=== PATIENT | female | born 1975 | race Caucasian/White ===

== ENCOUNTER 2025-01-01 06:16 | Day surgery (SDC) | payer OTHER ==
[~2025-01-01] VITALS: Ht 154.9 cm; Wt 77.6 kg
[~2025-01-01 06:16] MED LIST: LACTATED RINGER'S 1,000 ML IV SCH; VENTOLIN HFA18 GM INH
[2025-01-01 06:42] VITALS: BP 128/82
[2025-01-01] MEDS ORDERED: LIDOCAINE HCL 1% 5 ML SDV INJ ONE (07:00)
[2025-01-01] MEDS ORDERED: IBLOOD GLUCOSE TEST STRIP 1 EA TEST VI PRN (07:00)
[2025-01-01] MEDS ORDERED: propofoL 200 MG/20 ML VIAL ONE ×2 (07:09→09:20)
[2025-01-01] MEDS ORDERED: LIDOCAINE HCL 2% 5 ML SDV ONE (07:09)
--- NOTE | 2025-01-01 08:01 | NUR ---
VISITED DURING SPIRITUAL CARE ROUNDS. PT SUPPORTED BY IN ROOM. BOTH IN OVERALL GOOD SPIRITS, NO IMMEDIATE NEEDS. TECHNICAL APPLICATIONS SPECIALIST PROVIDED SUPPORTIVE PRESENCE, HOSPITALITY, PRAYER. AND PT EXPRESSED GRATITUDE.
--- NOTE | 2025-01-01 10:02 | NUR ---
01/01/25 1002 Caroline Clinton 0957-PATIENT ARRIVED TO PACU ON 6L NC REACTIVE TO VERBAL STIMULI VERY DROWSY ABDOMEN SOFT. LAYING LEFT LATERAL. IVF INFUSING. SR HR 80'S. 1001-PATIENT AWAKE DROWSY DENIES PAIN OR NAUSEA. PASSING GAS. PLACED ON 2L NC RR EVEN 100% ORIENTED TO PACU
[2025-01-01 10:37] VITALS: BP 128/79
--- NOTE | 2025-01-03 11:19 | OR ---
[facility] [address] [place], [place] [address] Signed DATE OF OPERATION: 01/01/2025 SURGEON: Lisa Osborne MD PREOPERATIVE DIAGNOSES: Dysphagia to solids and dyspepsia POSTOPERATIVE DIAGNOSES: Mild distal esophageal stricture with no mass formation and mild gastritis in the prepyloric area. PROCEDURE: EGD. ANESTHESIA: MAC. PROCEDURE IN DETAIL: After obtaining informed consent, the patient was taken to the operating room where she was placed in the left lateral decubitus position. Adequate sedation was achieved with MAC. The bite block was then inserted and a gastroscope was then introduced into the proximal esophagus without any significant difficulty. The cricopharyngeal area was very tight as it was . The scope was then navigated all the way down into the distal esophagus without any difficulty. No pathology was noted in any portion of the esophagus except for the distal esophagus which had a mild circumferential stricture. The lumen of the esophagus was approximately 1 cm. The scope was passed without any significant difficulty but of the esophagus. At that point, the scope was then inserted into the stomach. Adequate visualization of the entire stomach was achieved. Some of the fluid was aspirated and then I navigated the scope all the way down into the prepyloric area. The duodenum was then entered and advanced all the way to the D2 area. No gross pathology was identified in the first and second portion of the duodenum. The prepyloric area had some mild gastritis. Retroflexion was achieved without any difficulty and adequate visualization of the fundus and distal esophageal junction was identified. A little bit of oozing was noted from the penetration or insertion of the scope through the stricture. At that point, the stomach was then aspirated and pulled back again visualizing entire esophagus without any difficulty. The scope was then removed. The patient tolerated well the procedure and was then taken to the recovery room in good and stable condition. Prior to that, she underwent colonoscopy. Electronically Signed By: LISA OSBORNE MD 01/03/25 1119 PATIENT NAME: YOUSIF VALLES OPERATIVE REPORT DATE OF : 73 REPORT #: [id number] PHYSICIAN: LISA OSBORNE MD PCP: JESSE SHEPHERD PA-C REPORT IS CONFIDENTIAL AND NOT TO BE RELEASED WITHOUT AUTHORIZATION [address] [address] Signed MD FILI Vick/JOSE MIGUEL /[id number] Copies: ~ Electronically Signed By: LISA OSBORNE MD 01/03/25 1119 PATIENT NAME: YOUSIF VALLES OPERATIVE REPORT DATE OF : 73 REPORT #: [id number] PHYSICIAN: LISA OSBORNE MD PCP: JESSE SHEPHERD PA-C REPORT IS CONFIDENTIAL AND NOT TO BE RELEASED WITHOUT AUTHORIZATION
--- NOTE | 2025-01-03 11:19 | OR ---
[facility] [address] [facility] [address] [place], [place] [address] Signed DATE OF OPERATION: 01/01/2025 SURGEON: Lisa Osborne MD PREOPERATIVE DIAGNOSIS: Screening colonoscopy. POSTOPERATIVE DIAGNOSIS: Subcentimeter polyp in the rectosigmoid area. PROCEDURE IN DETAIL: After obtaining informed consent, the patient was taken to the operating room where she was placed in the left lateral decubitus position. The anus was then thoroughly inspected. Digital exam was also performed. Small tiny internal hemorrhoid was noted. After lubricating the scope copiously, then the scope was inserted into her rectum and advanced into the sigmoid, descending colon, transverse colon and ascending colon without any significant difficulty. The cecum was reached, adequately visualized. No pathology was noted. At this point, a pullback technique was performed achieving adequate circumferential visualization of the entire colon. At the level of the rectosigmoid area, there was about , which was excised with cold biopsy. No bleeding was identified. The scope was then pulled all the way to the rectum where the rectum anal area was adequately visualized. No gross pathology was noted. The quality was prep was good. The patient tolerated well the procedure. MD FILI Vick/CLARENCEL /[id number] Copies: ~ Electronically Signed By: LISA OSBORNE MD 01/03/25 1119 PATIENT NAME: YOUSIF VALLES OPERATIVE REPORT DATE OF : 73 REPORT #: [id number] PHYSICIAN: LISA OSBORNE MD PCP: JESSE SHEPHERD PA-C REPORT IS CONFIDENTIAL AND NOT TO BE RELEASED WITHOUT AUTHORIZATION
== END 2025-01-01 10:40 | disposition home or self-care (01) ==
LOC: DS 06:16
PROVIDERS: ATTEND Transplant Surgery
PROC: 0DBN8ZZ Excision of Sigmoid Colon, Via Natural or Artificial Opening Endoscopic (ICD-10-PCS; principal; 2025-01-01 07:30)
PROC: 0DJ08ZZ Inspection of Upper Intestinal Tract, Via Natural or Artificial Opening Endoscopic (ICD-10-PCS; 2025-01-01 07:30)
DX: Z12.11 Encounter for screening for malignant neoplasm of colon (principal); D12.7 Benign neoplasm of rectosigmoid junction; K64.8 Other hemorrhoids; K22.2 Esophageal obstruction; K29.70 Gastritis, unspecified, without bleeding; E78.5 Hyperlipidemia, unspecified; J45.909 Unspecified asthma, uncomplicated; E66.9 Obesity, unspecified; Z79.899 Other long term (current) drug therapy; Z68.32 Body mass index [BMI] 32.0-32.9, adult
CPT/HCPCS: 00811; 84703; 88305; J2003; J2704; J7121